=== PATIENT | female | born 1965 | race African-American/Black ===

== ENCOUNTER 2021-06-05 07:29 | Inpatient (IN) | payer MEDICAID, OTHER ==
[2021-06-05] VITALS (18 sets, daily range): BP systolic 136–188; BP diastolic 61–98
[~2021-06-05] VITALS: Ht 170.2 cm; Wt 56.8 kg
[2021-06-05] MEDS ORDERED: ALBUTEROL (0.083%) 2.5MG/3ML NEB HHN STA (07:35)
[2021-06-05] MEDS ORDERED: METHYLPREDNISOLONE SOD SUCC 125 MG/2 ML VIAL IV STA (07:35)
[2021-06-05 08:03] LABS: CHLORIDE 111 mEq/L (98-107)
[2021-06-05 08:07] LABS: ETHANOL BLOOD < 10 mg/dL
[2021-06-05 08:21] LABS: BASOPHILS % 0.3 % (0.0-2.0); EOSINOPHILS % 1.9 % (0.0-5.0); HEMATOCRIT. 28.3 % (36.0-48.0); LYMPHOCYTES % 13.5 % (20.0-50.0); MEAN CORPUSCULAR HEMOGLOBIN 22.2 pg (28.0-32.0); MEAN CORPUSCULAR VOLUME 69.9 fL (81.0-99.0); MEAN PLATELET VOLUME 7.6 fl (7.4-10.4); MONOCYTES % 8.6 % (2.0-8.0); NEUTROPHILS % 75.7 % (40.0-76.0); RED BLOOD CELL COUNT 4.05 mill/uL (4.2-5.4); RED CELL DISTRIBUTION WIDTH 16.4 % (11.6-14.6)
[2021-06-05 08:25] LABS: PLATELET 327 x1000/uL (130-400)
[2021-06-05 08:41] LABS: PLATELET ESTIMATE NORMAL
[2021-06-05] MEDS ORDERED: ASPIRIN 81MG TABLET PO ONE (08:45)
[2021-06-05] MEDS ORDERED: FUROSEMIDE 40MG/4ML VIAL IVP NR (10:00)
[2021-06-05] MEDS ORDERED: NICARDIPINE 100MCG/ML 10ML VIAL (CATH LAB) IV ONE (10:23)
[2021-06-05] MEDS ORDERED: HEPARIN SODIUM 1,000 UNIT/1ML VIAL IV ONE (10:23)
[2021-06-05] MEDS ORDERED: NITROGLYCERIN 50MCG/ML 10ML VIAL (CATH LAB) IV ONE (10:23)
[2021-06-05] MEDS ORDERED: IODIXANOL 320MG/ML 100 ML BOTTLE IV ONE (10:31)
[2021-06-05] MEDS ORDERED: LIDOCAINE HCL 1% 20ML VIAL (Pyxis) INJ ONE (10:31)
[2021-06-05] MEDS ORDERED: VERAPAMIL HCL 2.5 MG/1 ML 2ML VIAL IV ONE (10:31)
[2021-06-05 11:03] LABS: *AMPHETAMINES SCREEN URINE NEGATIVE (NEGATIVE); *BARBITURATES SCREEN URINE NEGATIVE (NEGATIVE); *BENZODIAZEPINES SCREEN URINE NEGATIVE (NEGATIVE); *COCAINE SCREEN URINE NEGATIVE (NEGATIVE)
[2021-06-05 11:04] LABS: CANNABINOID URINE SCREEN NEGATIVE (NEGATIVE); METHADONE URINE SCREEN NEGATIVE (NEGATIVE); OPIATES URINE SCREEN NEGATIVE (NEGATIVE); PHENCYCLIDINE URINE SCREEN NEGATIVE (NEGATIVE)
[2021-06-05] MEDS ORDERED: MIDAZOLAM HCL 2 MG/2 ML VIAL ONE (11:07)
[2021-06-05] MEDS ORDERED: FENTANYL CITRATE/PF 50MCG/ML 2ML VIAL ONE (11:08)
[2021-06-05] MEDS ORDERED: DIPHENHYDRAMINE 50MG/ML VIAL ONE (11:30)
[2021-06-05] MEDS ORDERED: HYDRALAZINE 20MG/ML VIAL ONE (11:50)
[2021-06-05] MEDS ORDERED: NITROGLYCERIN 0.4MG TABLET SL SL ONE (11:57)
[2021-06-05] MEDS ORDERED: ATROPINE SULFATE 1MG/10ML SYR IV PRN (12:15)
[2021-06-05] MEDS ORDERED: ACETAMINOPHEN 325MG TABLET PO PRN ×2 (12:15→13:15)
[2021-06-05] MEDS ORDERED: MOME13HF IH (12:18)
[2021-06-05] MEDS ORDERED: MOME13HF2 (12:18)
[2021-06-05] MEDS ORDERED: METF-907 PO (12:18)
[2021-06-05] MEDS ORDERED: POTASSIUM PO (12:18)
[2021-06-05] MEDS ORDERED: ALLO100T PO (12:18)
[2021-06-05] MEDS ORDERED: FURO40TA5 PO (12:18)
[2021-06-05] MEDS ORDERED: LOSA100T32 PO (12:18)
[2021-06-05] MEDS ORDERED: CARV25TA47 PO (12:18)
[2021-06-05] MEDS ORDERED: ATOR40TA70 PO (12:18)
[2021-06-05] MEDS ORDERED: ASPI-1406 PO (12:18)
[2021-06-05] MEDS ORDERED: ALBU18HF2 PO (12:18)
[2021-06-05] MEDS ORDERED: MAGNESIUM/ALUMINUM HYDROXIDE/SIMETHICONE 30ML UDC PO PRN (13:15)
[2021-06-05] MEDS ORDERED: HYDROCODONE/ACETAMINOPHEN 5/325MG TABLET PO PRN (13:15)
[2021-06-05] MEDS ORDERED: GUAIFENESIN 200MG/10ML SUGAR FREE UDC PO PRN (13:15)
[2021-06-05] MEDS ORDERED: DOCUSATE SODIUM 100MG CAPSULE PO PRN (13:15)
[2021-06-05] MEDS ORDERED: ONDANSETRON HCL 4MG/2ML INJ IV PRN (13:15)
[2021-06-05] MEDS ORDERED: CLONIDINE 0.1MG TABLET PO PRN (13:15)
[2021-06-05] MEDS ORDERED: IPRATROPIUM/ALBUTEROL 0.5-3(2.5)MG/3ML NEB HHN PRN (13:15)
[2021-06-05] MEDS: AMLODIPINE 10MG TABLET PO SCH (14:44)
[2021-06-05 15:49] LABS: INR 1.1; PROTHROMBIN TIME 11.4 sec (9.6-11.0)
[2021-06-05] MEDS: HYDRALAZINE HCL 25MG TABLET PO SCH ×2 (16:00→22:29)
[2021-06-05] MEDS: FUROSEMIDE 40MG/4ML VIAL IVP SCH (18:24)
[2021-06-05] MEDS: ENOXAPARIN 60MG/0.6ML SYR SUBCUT SCH (20:33)
[2021-06-06] VITALS (9 sets, daily range): BP systolic 117–134; BP diastolic 63–75
[2021-06-06] MEDS: FUROSEMIDE 40MG/4ML VIAL IVP SCH (06:02)
[2021-06-06] MEDS: HYDRALAZINE HCL 25MG TABLET PO SCH ×2 (06:02→14:51)
[2021-06-06 08:17] LABS: BASOPHILS % 0.2 % (0.0-2.0); HEMATOCRIT. 28.1 % (36.0-48.0); HEMOGLOBIN. 9.1 g/dL (12.0-16.0); LYMPHOCYTES % 9.4 % (20.0-50.0); MEAN CORPUSCULAR HEMOGLOBIN 22.2 pg (28.0-32.0); MEAN CORPUSCULAR VOLUME 68.4 fL (81.0-99.0); MEAN PLATELET VOLUME 8.2 fl (7.4-10.4); MONOCYTES % 11.8 % (2.0-8.0); NEUTROPHILS % 78.6 % (40.0-76.0); PLATELET 375 x1000/uL (130-400); RED BLOOD CELL COUNT 4.11 mill/uL (4.2-5.4); RED CELL DISTRIBUTION WIDTH 16.6 % (11.6-14.6)
[2021-06-06] MEDS ORDERED: SPIRONOLACTONE 25MG TABLET PO SCH (09:00)
[2021-06-06] MEDS ORDERED: ASPIRIN 81MG TABLET PO SCH (09:00)
[2021-06-06] MEDS: AMLODIPINE 10MG TABLET PO SCH (09:35)
[2021-06-06] MEDS: ENOXAPARIN 60MG/0.6ML SYR SUBCUT SCH (09:36)
[2021-06-06 10:22] LABS: CHLORIDE 102 mEq/L (98-107)
== END 2021-06-06 17:56 | disposition home or self-care (01) | DRG 190 ==
LOC: ER 07:29 → 3WST 09:59 → EDBEDREQ 10:05 → EDBEDREQTM 10:07 → EDBEDREQSVC 10:07 → EDBEDREQ 10:07
PROVIDERS: ADMIT Hospitalist; ATTEND Hospitalist
PROC: 4A023N7 Measurement of Cardiac Sampling and Pressure, Left Heart, Percutaneous Approach (ICD-10-PCS; principal; 2021-06-05)
PROC: B211YZZ Fluoroscopy of Multiple Coronary Arteries using Other Contrast (ICD-10-PCS; 2021-06-05)
DX: I21.4 Non-ST elevation (NSTEMI) myocardial infarction (principal); J96.01 Acute respiratory failure with hypoxia; I50.21 Acute systolic (congestive) heart failure; J44.1 Chronic obstructive pulmonary disease with (acute) exacerbation; E78.5 Hyperlipidemia, unspecified; I16.0 Hypertensive urgency; F17.200 Nicotine dependence, unspecified, uncomplicated; I27.20 Pulmonary hypertension, unspecified; I25.10 Atherosclerotic heart disease of native coronary artery without angina pectoris; Z20.822 Contact with and (suspected) exposure to COVID-19; E78.00 Pure hypercholesterolemia, unspecified; I11.0 Hypertensive heart disease with heart failure; I25.2 Old myocardial infarction; Z82.49 Family history of ischemic heart disease and other diseases of the circulatory system; Z95.5 Presence of coronary angioplasty implant and graft; Z79.899 Other long term (current) drug therapy; Z79.82 Long term (current) use of aspirin
CPT/HCPCS: 36415; 71045; 80048; 80053; 80305; 80320; 83880; 84484; 85025; 87426; 93005; 93306; 93458; 93970; 99291; C1769; C1887; C1893; J0360; J1200; J1644; J1650; J1940; J2250; J2930; J3010; J3490; Q9967; G0480